=== PATIENT | female | born 1980 | race Caucasian/White ===

== ENCOUNTER 2020-09-29 15:36 | Emergency (ER) | payer BC ==
[2020-09-29 16:07] VITALS: PULSE 96
[2020-09-29 16:58] VITALS: BP 140/104
[2020-09-29] MEDS ORDERED: Acetaminophen 325 MG Tab PO ONE (18:00)
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
--- NOTE | 2020-09-29 19:46 | CR ---
Left shoulder: 3 views of the left shoulder were obtained. Comparison: No previous left shoulder study is available. Glenohumeral joint and acromioclavicular joint appear within normal limits. No fracture, dislocation or other bony abnormality is seen. No abnormal soft tissue calcifications are seen. Impression: 1. No abnormality is appreciated on 3 view left shoulder study. Diagnostic code #1
--- NOTE | 2020-09-29 19:49 | CR ---
Right knee: 3 views of the right knee were obtained. Comparison: No prior knee study. Findings: Osseous: Prior ACL repair is seen. There is mild lateral joint narrowing with mild lateral osteophytes. Small medial osteophyte is also noted. Mild osteophytes are seen within the patella. There is mild joint space narrowing within the lateral patellofemoral joint. Soft tissues: No discrete abnormality. Impression: 1. Degenerative change as described above. Diagnostic code #2
== END 2020-09-29 20:53 | disposition home or self-care (01) ==
LOC: JD.ED 15:36
DX: S40.012A Contusion of left shoulder, initial encounter (principal); S80.01XA Contusion of right knee, initial encounter; R51.9 Headache, unspecified; Z86.19 Personal history of other infectious and parasitic diseases; Z88.5 Allergy status to narcotic agent; V49.49XA Driver injured in collision with other motor vehicles in traffic accident, initial encounter
CPT/HCPCS: 73030-26-LT; 73030-LT; 73562-26-RT; 73562-RT; 99282; 99284-25; A9270-GY